=== PATIENT | male | born 1970 | race Caucasian/White ===

== ENCOUNTER 2017-10-21 13:50 | Emergency (ER) | payer MEDICAID, OTHER ==
[2017-10-21] MEDS ORDERED: AZITHROMYCIN 500 MG TABLET PO ONE (14:17)
[2017-10-21] MEDS ORDERED: PREDNISONE 20 MG TAB PO ONE (14:17)
[2017-10-21] MEDS ORDERED: IPRATROPIUM/ALBUTEROL (0.5MG/3MG) NEB INH ONE (14:17)
--- NOTE | 2017-10-21 14:24 | Emergency Department Record ---
History of Present Illness - General Chief Complaint: Cough Stated Complaint: REA,COUGH,CHEST CONGESTION Time Seen by Provider: 10/21/17 14:17 Source: Patient, Family Mode of Arrival: Ambulatory - History of Present Illness Initial Comments: 46 yo male presents with a mild cough for about a week. He has a prior history of mild asthma. He reports his wheezing has increased the last day. No fever. He has had some right ear pain and drainage. He had 5 sets of tubes as a child. NO NVD. He is not a smoker. No chest pain. No rash. No edema. MD Complaint: Cough, Nasal congestion Onset/Timin -: Days(s) Severity: Moderate Consistency: Intermittent Worsens With: Other (coughing) Associated Symptoms: Cough, Ear pain, Shortness of breath Treatments Prior to Arrival: Other (albuterol 2 times) - Related Data Home Medications Medication Instructions Recorded Confirmed Last Taken Albuterol Sulfate [Ventolin Hfa] 2 puff INH ASDIR 10/21/17 10/21/17 10/21/17 Previous Rx's Medication Instructions Recorded Albuterol Sulfate [Proair Hfa] 1 - 2 puff IH .EVERY 4-6 HOURS PRN 10/21/17 #1 inhaler Azithromycin [Zithromax] 250 mg PO DAILY #4 tab 10/21/17 Prednisone [Prednisone 20Mg] 20 mg PO BID #10 tab 10/21/17 Allergies Allergy/AdvReac Type Severity Reaction Status Date / Time No Known Drug Allergies Allergy Verified 10/21/17 14:00 Travel Screening - Travel/Exposure Within Last 30 Days Have you traveled within the last 30 days?: No - Travel/Exposure Within Last Year Have you traveled outside the [place] in the last year?: No - Additonal Travel Details Have you been exposed to anyone with a communicable illness?: No - Travel Symptoms Symptom Screening: None Review of Systems Constitutional: Denies: Chills, Fever, Malaise, Weakness Eyes: Denies: Eye discharge, Eye pain, Photophobia, Vision change ENT: Reports: As per HPI, Congestion, Ear pain. Denies: Throat pain Respiratory: Reports: As per HPI, Cough, Wheezes Cardiovascular: Denies: Chest pain, Palpitations, Syncope Endocrine: Denies: Fatigue, Polydipsia, Polyuria Gastrointestinal: Denies: Abdominal pain, Diarrhea, Nausea, Vomiting Genitourinary: Denies: Dysuria, Frequency, Hematuria Musculoskeletal: Denies: Arthralgia, Back pain, Joint swelling, Myalgia Skin: Denies: Bruising, Change in color, Rash Neurological: Denies: Headache, Numbness, Tremors, Weakness Psychiatric: Denies: Anxiety Hematological/Lymphatic: Denies: Blood Clots, Easy bleeding, Easy bruising, Swollen glands Past Medical History - SOCIAL HISTORY Smoking Status: Never smoker Alcohol Use: Rare Drug Use: None - RESPIRATORY Hx Respiratory Disorders: No - CARDIOVASCULAR Hx Cardio Disorders: Yes Hx Hypertension: Yes - NEURO Hx Neuro Disorders: No - GI Hx GI Disorders: No - Hx Genitourinary Disorders: No - ENDOCRINE Hx Endocrine Disorders: No - MUSCULOSKELETAL Hx Musculoskeletal Disorders: No - PSYCH Hx Psych Problems: No - HEMATOLOGY/ONCOLOGY Hx Hematology/Oncology Disorders: No Family Medical History Any Significant Family History?: No Physical Exam - General General Appearance: Alert, Oriented x3, Cooperative, No acute distress Limitations: No limitations - Head Head exam: Atraumatic, Normal inspection - Eye Eye exam: Normal appearance. negative: Conjunctival injection, Scleral icterus - ENT ENT exam: Normal exam, Mucous membranes moist. negative: TM's normal bilaterally (Right TM with mild drainage, obscurs some of TM, no blood, canal is normal) Ear exam: Normal external inspection. negative: Auricular hematoma Nasal Exam: Normal inspection. negative: Discharge, Sinus tenderness Mouth exam: Normal external inspection, Tongue normal Teeth exam: Normal inspection. negative: Dental caries Throat exam: Normal inspection. negative: Tonsillar erythema, Tonsillar exudate - Neck Neck exam: Normal inspection, Full ROM. negative: Lymphadenopathy, Tenderness - Respiratory Respiratory exam: Decreased breath sounds, Prolonged expiratory, Wheezes. negative: Normal lung sounds bilaterally, Accessory muscle use, Respiratory distress, Rhonchi, Stridor - Cardiovascular Cardiovascular Exam: Regular rate, Normal rhythm, Normal heart sounds - GI/Abdominal GI/Abdominal exam: Soft. negative: Tenderness - Rectal Rectal exam: Deferred - exam: Deferred - Extremities Extremities exam: Normal inspection, Full ROM, Normal capillary refill. negative: Tenderness - Neurological Neurological exam: Alert, Normal gait, Oriented X3 - Psychiatric Psychiatric exam: Normal affect, Normal mood - Skin Skin exam: Dry, Intact, Normal color, Warm Course Vital Signs 10/21/17 10/21/17 14:01 14:04 Temperature 98.5 F 98.5 F Pulse Rate [ 97 H Pulse Ox Probe] Respiratory 22 22 Rate Blood Pressure 135/98 [Left Arm] Pulse Ox 98 98 - Reevaluation(s) Reevaluation #1: 10/21/17 14:22 Vitals reviewed No hypoxia, fever, or tachycardia He is non labored 10/21/17 14:50 The patient is improved on repeat examination He is moving air well. No dyspnea. No wheezing. Disposition Disposition: Discharge Clinical Impression: Acute wheezy bronchitis Disposition: Home, Self-Care Condition: (1) Good Instructions: Asthma (ED), Acute Bronchitis (ED) Additional Instructions: Call your doctor for follow up this week Take the antibiotic and steroid as directed Refill your Albuterol this week Prescriptions: Albuterol Sulfate [Proair Hfa] 1 - 2 puff IH .EVERY 4-6 HOURS PRN #1 inhaler PRN Reason: Difficulty In Breathing Azithromycin [Zithromax] 250 mg PO DAILY #4 tab Prednisone [Prednisone 20Mg] 20 mg PO BID #10 tab Forms: Patient Portal Access Time of Disposition: 14:25 Quality - Quality Measures Quality Measures: N/A - Blood Pressure Screening Does Patient Have Any of the Following: No Blood Pressure Classification: Hypertensive Reading Systolic Measurement: 135 Diastolic Measurement: 98 Screening for High Blood Pressure: < Pre-Hypertensive BP, F/U Documented > [ [id number]] Pre-Hypertensive Follow-up Interventions: Referral to alternative/primary care provider.
== END 2017-10-21 14:59 | disposition home or self-care (01) ==
LOC: ER 13:50
DX: J20.9 Acute bronchitis, unspecified (principal); R06.2 Wheezing; R06.02 Shortness of breath; I10 Essential (primary) hypertension
CPT/HCPCS: 99283 ×2; 94640; J7512